=== PATIENT | male | born 1995 | race Two or more races ===

== ENCOUNTER 2020-10-03 14:31 | Emergency (ER) | payer OTHER ==
[~2020-10-03] VITALS: Ht 175.3 cm; Wt 83.4 kg
--- NOTE | 2020-10-03 14:54 | NUR ---
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
--- NOTE | 2020-10-03 14:55 | NUR ---
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
[2020-10-03] MEDS ORDERED: KETOROLAC 30 MG/1 ML IM ONE (15:00)
[2020-10-03] MEDS ORDERED: LIDODERM 5% PATCH TD ONE ×2 (15:00→15:26)
[2020-10-03] MEDS ORDERED: METHOCARBAMOL 750 MG TABLET PO ONE (15:00)
[2020-10-03] MEDS ORDERED: METHOCARBAMOL 750 MG TABLET ONE (15:26)
[2020-10-03] MEDS ORDERED: KETOROLAC 30 MG/1 ML ONE (15:26)
[2020-10-03 15:31] VITALS: BP 116/62
--- NOTE | 2020-10-03 16:04 | NUR ---
Patient given discharge instructions and RX, they have confirmed that they understand the instructions. Patient ambulatory with steady gait.
== END 2020-10-03 16:09 | disposition home or self-care (01) ==
LOC: ED 16:00
DX: S29.012A Strain of muscle and tendon of back wall of thorax, initial encounter (principal); V49.49XA Driver injured in collision with other motor vehicles in traffic accident, initial encounter; Y93.89 Activity, other specified; Y92.410 Unspecified street and highway as the place of occurrence of the external cause; Y99.8 Other external cause status
CPT/HCPCS: 72072; 72110; 96372; 99284; J1885

== ENCOUNTER 2020-10-12 15:29 | Emergency (ER) | payer OTHER ==
[~2020-10-12] VITALS: Ht 170.2 cm; Wt 79.9 kg
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
[2020-10-12 18:42] VITALS: BP 148/100
--- NOTE | 2020-10-12 18:42 | NUR ---
PT REC'VD DISCHARGE INSTRUCTION AND EDUCATION. PT HAD NO FURTHER QUESTIONS.
--- NOTE | 2020-10-12 18:49 | NUR ---
PT AMBULATED TO CA AREA, STEADY GAIT.
== END 2020-10-12 18:51 | disposition home or self-care (01) ==
LOC: ED 18:30
DX: S16.1XXA Strain of muscle, fascia and tendon at neck level, initial encounter (principal); V47.5XXA Car driver injured in collision with fixed or stationary object in traffic accident, initial encounter; Y93.89 Activity, other specified; Y92.410 Unspecified street and highway as the place of occurrence of the external cause; Y99.8 Other external cause status
CPT/HCPCS: 72125; 99284